=== PATIENT | female | born 1965 | race Caucasian/White ===

== ENCOUNTER 2017-07-30 12:16 | Emergency (ER) | payer BC ==
[~2017-07-30] VITALS: Ht 157.5 cm; Wt 73.5 kg
[2017-07-30 12:18] VITALS: Ht 157.5 cm; Wt 73.5 kg
--- NOTE | 2017-07-30 14:55 | ERA ---
ER Documentation Chief Complaint Date/Time DATE: 07/30/17 TIME: 14:53 Chief Complaint pt bib self with c/o abd pain seen at [facility] for same, HPI The patient the patient is a 52-year-old female, presenting to the ER because of intermittent abdominal pain for 4 days. She was seen at [facility] 4 days ago and was diagnosed with acute UTI and acute colitis from a CT scan. She was discharged with Cipro, her symptoms are getting better, denies fever, chills, hematochezia, hematemesis. She does not smoke nor drink Past medical history: None Past surgical history: Ectopic ROS All systems reviewed and are negative except as per history of present illness. Medications Home Meds Active Scripts Metronidazole* (Flagyl*) 500 Mg Tablet, 500 MG PO TID for 7 Days, TAB Prov:MIKALA SCHAFFER MD 07/30/17 Allergies Allergies: Coded Allergies: No Known Allergy (Unverified , 07/30/17) Physical Exam Vitals Vital Signs Date Time Temp Pulse Resp B/P Pulse Ox O2 Delivery O2 Flow Rate FiO2 07/30/17 16:37 98.4 78 17 130/87 100 Room Air 07/30/17 15:13 98.5 72 18 131/92 97 Room Air 07/30/17 12:18 98.8 76 16 132/63 97 Physical Exam Const: No acute distress. Head: Atraumatic. Eyes: Normal Conjunctiva. ENT: Normal External Ears, Nose and Mouth. Neck: Full range of motion. No meningismus. Resp: Clear to auscultation bilaterally. Cardio: Regular rate and rhythm. Abd: Soft, non distended, normal bowel sounds, Minimal and vague abdominal discomfort, no rigidity, rebound, CVA tenderness. Skin: No petechiae or rashes. Back: No midline or flank tenderness. Ext: No cyanosis, or edema. Neur: Awake and alert. No focal deficit Psych: Normal Mood and Affect. Result Diagram: 07/30/17 1508 07/30/17 1508 Results 24 hrs Laboratory Tests Test 07/30/17 15:08 07/30/17 15:19 White Blood Count 5.910^3/ul Red Blood Count 4.8410^6/ul Hemoglobin 14.8g/dl Hematocrit 44.6% Mean Corpuscular Volume 92.1fl Mean Corpuscular Hemoglobin 30.6pg Mean Corpuscular Hemoglobin Concent 33.2g/dl Red Cell Distribution Width 12.6% Platelet Count 84000^3/UL Mean Platelet Volume 9.3fl Neutrophils % 60.6% Lymphocytes % 30.1% Monocytes % 6.1% Eosinophils % 1.9% Basophils % 0.8% Nucleated Red Blood Cells % 0.0/100WBC Neutrophils # 3.610^3/ul Lymphocytes # 1.810^3/ul Monocytes # 0.410^3/ul Eosinophils # 0.110^3/ul Basophils # 0.110^3/ul Nucleated Red Blood Cells # 0.010^3/ul Sodium Level 141mmol/L Potassium Level 3.3mmol/L Chloride Level 101mmol/L Carbon Dioxide Level 30mmol/L Anion Gap 13 Blood Urea Nitrogen 13mg/dl Creatinine 0.69mg/dl Glucose Level 99mg/dl Calcium Level 9.4mg/dl Total Bilirubin 0.2mg/dl Direct Bilirubin 0.00mg/dl Indirect Bilirubin 0.2mg/dl Aspartate Amino Transf (AST/SGOT) 30IU/L Alanine Aminotransferase (ALT/SGPT) 41IU/L Alkaline Phosphatase 94IU/L Total Protein 8.8g/dl Albumin 4.6g/dl Globulin 4.20g/dl Albumin/Globulin Ratio 1.09 Lipase 101U/L Bedside Urine pH (LAB) 7.0 Bedside Urine Protein (LAB) Negative Bedside Urine Glucose (UA) Negative Bedside Urine Ketones (LAB) 1+ Bedside Urine Blood 1+ Bedside Urine Nitrite (LAB) Negative Bedside Urine Leukocyte Esterase (L Negative Current Medications Medications (Trade) Dose Ordered Sig/Miracle Route PRN Reason Start Time Stop Time Status Last Admin Dose Admin Sodium Chloride (NS) 1,000 ml @ 1,000 mls/hr Q1H ONCE IV 07/30/17 15:00 07/30/17 15:59 DC 07/30/17 15:17 Ondansetron HCl (Zofran Inj) 4 mg ONCE STAT IV 07/30/17 15:00 07/30/17 15:02 DC 07/30/17 15:17 Potassium Chloride (Klor-Con 20) 40 meq ONCE STAT PO 07/30/17 16:09 07/30/17 16:13 DC 07/30/17 16:29 Procedures/MDM MEDICAL MAKING DECISION: The patient is a 52-year-old female, presenting with ongoing colitis, acute hypokalemia. She was treated with 1 L normal saline for clinical dehydration, Zofran 4mg IV for nausea and potassium chloride 40 mg p.o. for acute hypokalemia with good response. She is stable for outpatient follow-up The differential diagnoses considered include but are not limited to cholelithiasis, cholecystitis, cystitis, pancreatitis, hepatitis, gastritis, peptic ulcer disease, gastric ulcer, appendicitis, diverticulitis, cholangitis, choledocholithiasis, partial small bowel obstruction. Departure Diagnosis: Primary Impression: Colitis Additional Impression: Hypokalemia Condition: Good Comments She was discharged with Flagyl and advised to continue Cipro I discussed the findings with the patient. I advised the patient to follow-up with the primary physician in about 1-2 days, sooner if needed and return if any concern. MIKALA SCHAFFER MD Jul 30, 2017 14:55
[2017-07-30] MEDS ORDERED: SOD CHLORIDE 0.9% 1,000 ML IV ONE (15:00)
[2017-07-30] MEDS ORDERED: ONDANSETRON 4 MG INJ IV STA (15:00)
[2017-07-30 15:12] LABS: URINE BLOOD (Dip) POC 1+ (NEGATIVE)
[2017-07-30 15:42] LABS: BASOPHIL # 0.1 10^3/ul (0.0-0.1); BASOPHILS % 0.8 % (0.0-2.0); EOSINOPHILS # 0.1 10^3/ul (0.0-0.5); EOSINOPHILS % 1.9 % (0.0-7.0); HEMATOCRIT 44.6 % (37.0-47.0); HEMOGLOBIN 14.8 g/dl (12.0-16.0); LYMPHOCYTES # 1.8 10^3/ul (0.8-2.9); LYMPHOCYTES % 30.1 % (15.0-51.0); MEAN CORPUSCULAR HEMOGLOBIN 30.6 pg (29.0-33.0); MEAN CORPUSCULAR HGB CONC 33.2 g/dl (32.0-37.0); MEAN CORPUSCULAR VOLUME 92.1 fl (82.0-101.0); MEAN PLATELET VOLUME 9.3 fl (7.4-10.4); MONOCYTE # 0.4 10^3/ul (0.3-0.9); MONOCYTES % 6.1 % (0.0-11.0); NEUTROPHIL # 3.6 10^3/ul (1.6-7.5); NEUTROPHILS % 60.6 % (39.0-77.0); PLATELET COUNT 282 10^3/UL (140-415); RED BLOOD COUNT 4.84 10^6/ul (4.20-5.40); RED CELL DISTRIBUTION WIDTH 12.6 % (11.5-14.5); WHITE BLOOD COUNT 5.9 10^3/ul (4.8-10.8)
[2017-07-30 15:59] LABS: ALBUMIN 4.6 g/dl (3.3-4.9); ALBUMIN/GLOBULIN RATIO 1.09; BILIRUBIN,INDIRECT 0.2 mg/dl (0-1.1); BILIRUBIN,TOTAL 0.2 mg/dl (0.2-1.3); CALCIUM 9.4 mg/dl (8.4-10.2); CREATININE 0.69 mg/dl (0.44-1.00); POTASSIUM 3.3 mmol/L (3.5-5.1); TOTAL PROTEIN 8.8 g/dl (6.1-8.1)
[2017-07-30] MEDS ORDERED: POTASSIUM CHLORIDE (SR) 20 MEQ TAB PO STA (16:09)
[2017-07-30] MEDS ORDERED: METR500T PO (16:10)
[2017-07-30 16:37] VITALS: BP 130/87; PULSE 78; RESP 17; TEMP 98.4
== END 2017-07-30 16:38 | disposition home or self-care (01) ==
LOC: E/R 12:16
DX: K52.9 Noninfective gastroenteritis and colitis, unspecified (principal); E87.6 Hypokalemia
CPT/HCPCS: 36415; 80053; 81003; 83690; 85025; 96374; 99284; J2405; J7030; Z7610